=== PATIENT | female | born 1990 | race Caucasian/White ===

== ENCOUNTER 2018-10-07 06:25 | Inpatient (IN) | payer OTHER ==
--- NOTE | 2018-10-07 07:35 | History and Physical Report ---
History of Present Illness Date of examination: 10/07/18 Date of admission: 10/07/2018 Chief complaint: SROM History of present illness: Menstrual History Regularity: regular Menses every: 28 days Duration: 7 LMP: 01/01/2018 LMP reliability: definite LMP character: normal test type: urine test Date: 04/19/2018 BC at conception: none Planned ? no EDC Calculations LMP: 10/08/2018 EDC Confirmation: 10/08/2018 Past History : 2 Term Births: 0 Premature Births: 0 Living Children: 0 Para: 0 Mult. Births: 0 Prev : 0 Prev. attempt? 0 Aborta: 1 Past Medical History: Reviewed history from 11/22/2015 and no changes required: Negative Past Medical History Past Surgical History: Reviewed history from 11/22/2015 and no changes required: negative Past Medical History Anesthesia Complications: negative Anemia: negative Autoimmune Disorder: negative Bleeding Disorder: negative Blood Transfusions: negative Breast Disease: negative Diabetes: negative Heart Disease: negative Hypertension: negative Hepatitis/Liver Disease: negative Kidney Disease/UTI: negative Neurologic/Epilepsy/Migraines: negative Phlebitis/Varicosities: negative Psychiatric: negative Pulmonary Disease/Asthma: negative Thyroid Disease: negative Hospitalizations: negative Surgery (Non-artistic associate): negative Abnormal PAP: negative STEPHANIE Exposure: negative Infertility: negative Uterine Anomaly: negative Uterine Surgery (not C/S): negative Other Gynecologic Problems: negative Social Hx: Patient is single Smoking History: Patient has never smoked. Infection History Hx of STD: none HIV Risk Eval: no Hepatitis B Risk Eval: low risk Personal hx. of genital herpes: no Partner hx. of genital herpes: no Rash, Viral, or Febrile illness since last LMP? no Varicella/Chicken Pox Status: Previous Disease Genetic History Congenital Heart Defect: Mom: no Dad: no Mumtaz Disease: Mom: no Dad: no Thalassemia Mom: no Dad: no Neural Tube Defect Mom: no Dad: no Down's Syndrome Mom: yes Dad: no Comments: cousin with DS Miguelito-Sachs Mom: no Dad: no Sickle Cell Disease/Trait Mom: no Dad: no Hemophilia Mom: no Dad: no Muscular Dystrophy Mom: no Dad: no Cystic Fibrosis Mom: no Dad: no Steven Chorea Mom: no Dad: no Mental Retardation Mom: no Dad: no Fragile X Mom: no Dad: no Other Genetic/Chromosomal Disorder Mom: no Dad: no Child w/other defect Mom: no Dad: no Enviromental Exposures Xray Exposure: no Medication, drug, or alcohol use since LMP: no Chemical/Other Exposure: no Exposure to Cat Liter: yes Hx of Parvovirus (Fifth Disease): no Occupational Exposure to Children: none Comments: instucted not to do litter box Current Allergies (reviewed today): No known allergies Past History Past Medical History: other (see hpi) Past Surgical History: other (see hpi) 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) Family/Genetic History: other (see hpi) Social history: other (see hpi) - Obstetrical History : 2 Medications and Allergies Allergies Allergy/AdvReac Type Severity Reaction Status Date / Time No Known Allergies Allergy Verified 10/07/18 07:51 Home Medications Medication Instructions Recorded Confirmed Last Taken Type Vit-Fe Fumar-FA [ 1 tab PO QDAY 10/07/18 10/07/18 10/06/18 His tory Vitamin] Review of Systems All systems: negative - Vital Signs Vital signs: Vital Signs Temp Pulse Resp BP Pulse Ox 98.1 F 126 H 22 125/81 96 10/07/18 06:41 10/07/18 06:41 10/07/18 06:41 10/07/18 06:41 10/07/18 06:41 Temp Pulse Resp BP Pulse Ox 98.1 F 118 H 22 125/81 97 10/07/18 06:41 10/07/18 07:26 10/07/18 06:41 10/07/18 06:41 10/07/18 07:26 - Physical Exam Breasts: Positive: normal Cardiovascular: Regular rate, Normal S1, Normal S2 Lungs: Positive: Clear to auscultation Abdomen: Positive: normal appearance, soft, normal bowel sounds. Negative: distention, tenderness Vulva: both: normal Vagina: Positive: normal moisture. Negative: discharge Cervix: Negative: lesion, discharge Uterus: Positive: normal size, normal contour Adnexa: both: normal Anus/Rectum: Positive: normal perianal skin, heme negative. Negative: rectal mass, hemorrhoids Extremities: Deep Tendon Reflex Grade: Normal +2 - Obstetrical FHR: auscultation normal Uterine Contraction Monitor Mode: External (irregular, mild) Uterine Contraction Pattern: Irregular Uterine Tone Measurement Phase: Contraction Uterine Contraction Intensity: Mild (resting tone soft) Results Result Diagrams: 10/07/18 07:14 All other labs normal. Assessment and Plan 27 y.o. IUP at 39w 6d admitted for SROM, clear at 0400. Patient denies regular, painful contractions. SVE is 1.5/60/-1. GBS negative. Category 1 tracing. Plan to start pitocin per protocol. patient desires unmedicated labor. Plan reviewed with Dr. Cunningham and patient, both agree to proceed.
[2018-10-07 07:47] LABS: Hemoglobin 12.6 gm/dl (10.1-14.3); Mean Corpuscular HGB Conc 35 % (30-34); Mean Corpuscular Volume 90 fl (79-97); Platelet Count 245 K/mm3 (140-440); Red Blood Count 4.01 M/mm3 (3.65-5.03); Red Cell Distribution Width 14.2 % (13.2-15.2)
[2018-10-07] MEDS ORDERED: LACTATED RINGERS 1,000 ML ONE (07:47)
[2018-10-07] MEDS ORDERED: ZOFRAN IV PRN ×2 (08:30→23:02)
[2018-10-07] MEDS ORDERED: NARCAN 0.4 MG/1 ML IV PRN ×2 (08:30→23:02)
[2018-10-07] MEDS ORDERED: BRETHINE SUB-Q PRN (08:30)
[2018-10-07] MEDS ORDERED: XYLOCAINE 2% INFILTRATI NR (08:30)
[2018-10-07] MEDS ORDERED: BRETHINE IVP PRN (08:30)
[2018-10-07] MEDS ORDERED: MINERAL OIL PO PRN (08:30)
[2018-10-07] MEDS ORDERED: LACTATED RINGERS 1,000 ML IV SCH (09:00)
[2018-10-07] MEDS ORDERED: PITOCin/NS 30 UNIT/500ML 30 UNITS/500 ML BAG IV SCH ×2 (09:00)
[2018-10-07] MEDS ORDERED: PITOCin/NS 20 UNIT/1000ML DRIP 20 UNITS/1,000 ML BAG IV SCH (09:00)
[2018-10-07] MEDS: SUBLIMAZE IV PRN ×3 (14:45→18:50)
--- NOTE | 2018-10-07 18:43 | Event Note ---
Date: 10/07/18 Patient repeat cervical exam by RN still 8 cm. Discussed with the patient and family indications for operative delivery. Also discussed patient's epidural which is still does not have. We'll continue with analgesics for now. tracing is reactive will continue expected management
[2018-10-07] MEDS ORDERED: PEPCID IV ONE (22:47)
[2018-10-07] MEDS ORDERED: REGLAN IV ONE (22:47)
[2018-10-07] MEDS ORDERED: BICITRA PO ONE (22:47)
--- NOTE | 2018-10-07 22:53 | Event Note ---
Date: 10/07/18 Patient has been completely dilated since approximately 1999. Patient has had good effort with pushing but is not push past +1 station. We have repositioning patient also tried to rotate head without success of increasing descent. Patient was complaining of pain and fatigue and desires section. Patient informed the risks of the surgery include bleeding possibly bleeding heavy enough to require blood transfusion, infection possible damage to bowel bladder ureter. All questions answered. Patient agrees to proceed
[2018-10-07] MEDS ORDERED: ANCEF/STERILE WATER 2 GM/20 ML 2 GM/20 ML SYRINGE IV NR (23:00)
[2018-10-07] MEDS ORDERED: PHENERGAN PO PRN (23:02)
[2018-10-07] MEDS ORDERED: DILAUDID IV PRN (23:02)
[2018-10-07] MEDS ORDERED: PHENERGAN PR PRN (23:02)
--- NOTE | 2018-10-07 23:02 | Anesthesia Consultation ---
Anesthesia Consult and Med Hx Date of service: 10/07/18 - Airway Anesthetic Teeth Evaluation: Good ROM Head & Neck: Adequate Mental/Hyoid Distance: Adequate Mallampati Class: Class II Intubation Access Assessment: Probably Good - Pulmonary Exam CTA: Yes - Cardiac Exam Cardiac Exam: RRR - Pre-Operative Health Status ASA Pre-Surgery Classification: ASA2, Emergency Proposed Anesthetic Plan: Spinal - Pulmonary Hx Asthma: No - Cardiovascular System Hx Hypertension: No - Central Nervous System Hx Seizures: No Hx Psychiatric Problems: No - Endocrine Hx Renal Disease: No Hx Hypothyroidism: No Hx Hyperthyroidism: No - Hematic Hx Anemia: No Hx Sickle Cell Disease: No - Other Systems Hx Alcohol Use: No
[2018-10-07] MEDS ORDERED: NACL 0.9% IR ONE (23:12)
[2018-10-07] MEDS ORDERED: WATER FOR IRRIG STERILE IR ONE (23:12)
[2018-10-07] MEDS ORDERED: fentaNYL-BUPIV 2 MCG/ML-0.125% 200 MCG/100 ML BAG EPIDURAL SCH (23:45)
[2018-10-07] MEDS ORDERED: SODIUM CHLORIDE FLUSH SYRINGE 10 ML IV NR (23:45)
--- NOTE | 2018-10-08 00:35 | Operative Report ---
Operative Report Operative Report: Date of procedure: 10/07/2018 Pre-operative diagnosis: Intrauterine at 39 weeks with premature rupt ure of membranes, failure of descent Post-operative diagnosis: Same Procedure name(s): Primary low transverse section Surgeon: Alejandro Cunningham MD Field Case Manager: Anesthesia: Final EBL: 500 mL Complications: None Findings: Normal uterus tubes and ovaries bilaterally. Female weight 8 lbs. 1 oz. Apgars 8 at 1 minute and 9 at 5 minutes Specimen(s): None Procedure: The patient was brought to the operating room. A spinal was placed without any complications. She was then placed in left lateral tilt. Prepped and draped in the usual sterile manner. After testing for adequate anesthesia level, a Pfannenstiel incision was made. This incision was taken down to the fascia. The fascia was then nicked in the midline. This incision was extended out laterally with Pires scissors. The fascia was then sharply and bluntly from the underlying rectus muscles. The rectus muscles were bluntly and sharply . The peritoneum was then entered with the encoding machine operator's fingers. This incision was spread vertically with care not to damage the bladder below. The bladder flap was then formed sharply and bluntly with Metzenbaum scissors. The Nico self-retaining tractor was then placed without any difficulty. A transverse incision was made in lower uterine segment. This incision was extended laterally with the operators fingers. The amniotic sac was then entered bluntly with the encoding machine operator's fingers. The infant was delivered from the vertex position. Bulb suction on the mother's abdomen. Cord was double clamped and cut. The infant was then passed to the nursery personnel who were in attendance. The above scores were given by the nursery personnel. The placenta was then bluntly removed. The uterus was then externalized and wiped clean the remaining products. The uterine incision was closed in layers. The first incision was closed in a locking manner using 0 Vicryl. This was followed by imbricating stitch also with 0 Vicryl. This closure was hemostatic. The bladder flap was copiously irrigated and found to be hemostatic. The pelvis was copiously irrigated and found to be hemostatic. The uterus was then placed back to the patient's abdomen. The retractors were removed. The rectus muscles were inspected and found to be hemostatic. The fascia was then closed in a running manner using 0 Vicryl. This incision was hemostatic irrigation Bovie. The skin was reapproximated with 4-0 Vicryl subcuticularly. The patient tolerated procedure well. Her urine was clear. The was admitted to the [facility] baby nursery. The patient was accompanied to recovery room in good condition. Instrument count correct times 3.
[2018-10-08] MEDS ORDERED: TUCKS PAD TP PRN (00:46)
[2018-10-08] MEDS ORDERED: MYLICON PO PRN (00:46)
[2018-10-08] MEDS ORDERED: NARCAN 0.4 MG/1 ML IV PRN (00:46)
[2018-10-08] MEDS ORDERED: MILK OF MAGNESIA PO PRN (00:46)
[2018-10-08] MEDS ORDERED: ZOFRAN IV PRN (00:46)
[2018-10-08] MEDS ORDERED: LANSINOH TP PRN (00:46)
[2018-10-08] MEDS ORDERED: SODIUM CHLORIDE FLUSH SYRINGE 10 ML IV NR (01:00)
[2018-10-08] MEDS ORDERED: D5LR 1,000 ML IV SCH (01:00)
[2018-10-08] MEDS ORDERED: PITOCin/NS 20 UNIT/1000ML DRIP 20 UNITS/1,000 ML BAG IV SCH (01:00)
[2018-10-08] MEDS: TORADOL IV SCH ×4 (02:53→23:20)
--- NOTE | 2018-10-08 07:57 | Progress Note ---
Assessment and Plan patient resting, reports pain well controlled. Floyd to BSB with adequate output. VSSAF. H&H ordered for 1236 today. Encouraged hydration and use of ISS while awake. continue postop pathway. - Patient Problems (1) delivery delivered Current Visit: Yes Status: Acute Subjective - Subjective Date of service: 10/08/18 Principal diagnosis: <12hrs postop; s/p primary c/s Patient reports: pain well controlled, no nauseated [place]: doing well, bottle feeding Objective - Vital Signs Latest vital signs: Vital Signs Temp Pulse Resp BP BP Pulse Ox 10/08/18 04:48 99.1 F 83 20 118/57 10/08/18 03:23 18 10/08/18 02:53 18 10/08/18 02:31 98.0 F 107 H 22 134/66 10/08/18 01:35 98.3 F 78 20 110/52 98 10/08/18 01:20 74 17 108/56 98 10/08/18 01:05 69 20 110/48 96 10/08/18 00:55 79 20 103/54 96 10/08/18 00:45 73 20 93/48 95 10/08/18 00:40 82 19 94/41 95 10/08/18 00:35 85 20 88/34 95 10/08/18 00:30 99.1 F 97 H 17 84/33 95 10/07/18 22:21 130 H 131/77 10/07/18 21:52 113 H 110/55 10/07/18 20:21 118 H 133/94 10/07/18 19:50 106 H 137/68 10/07/18 19:20 117 H 131/81 10/07/18 18:50 100 H 135/75 10/07/18 18:21 117 H 129/67 10/07/18 17:50 82 118/66 10/07/18 17:21 97 H 130/85 10/07/18 17:07 99 H 127/70 10/07/18 15:51 103 H 120/58 10/07/18 15:20 92 H 129/84 10/07/18 14:50 85 133/89 10/07/18 13:59 97.2 F L 20 10/07/18 13:57 97 H 133/71 10/07/18 12:40 98 H 129/75 10/07/18 12:11 107 H 120/75 10/07/18 11:40 105 H 121/75 10/07/18 11:11 108 H 125/68 10/07/18 10:45 112 H 122/67 10/07/18 10:11 103 H 116/69 10/07/18 09:40 100 H 110/60 10/07/18 09:11 101 H 119/60 10/07/18 08:40 100 H 118/74 Intake and Output 10/07/18 10/07/18 10/08/18 15:59 23:59 07:59 Intake Total 30.900 120 Output Total 400 1800 Balance -369.100 -1680 Intake: IV 30.900 PITOCin/NS 30 UNIT/500ML 30.900 30 units In 500 ml @ 2 mls/hr IV TITR NYDIA Rx#: [id number] Oral 120 Output: Urine 400 1800 Indwelling Catheter 1300 Uretheral (Floyd) 500 Void 400 Other: Total, Intake Amount 120 Total, Output Amount 200 900 Estimated Blood Loss 500 - Exam Breasts: Present: normal Cardiovascular: Present: Regular rate Lungs: Present: Clear to auscultation, Normal air movement Abdomen: Present: normal appearance, soft Vulva: both: normal Uterus: Present: normal, firm, fundal height at umbilicus Extremities: Present: normal Incision: Present: normal, dry, dressed
[2018-10-08] MEDS: ANCEF/NS 1 GM/50 ML 1 GM/50 ML BAG IV SCH ×2 (09:51→17:52)
[2018-10-08] MEDS: FEOSOL PO SCH (09:53)
[2018-10-08] MEDS: PRENATAL VITAMIN PO SCH (09:54)
[2018-10-08 13:43] LABS: Hematocrit 33.4 % (30.3-42.9); Hemoglobin 11.5 gm/dl (10.1-14.3)
[2018-10-08] MEDS: NORCO 5/325 PO PRN (17:51)
[2018-10-08] MEDS: IBUPROFEN PO PRN (17:51)
[2018-10-08] MEDS ORDERED: M-M-R II VACCINE SUB-Q ONE (20:00)
[2018-10-09] MEDS: IBUPROFEN PO PRN ×3 (05:57→17:56)
[2018-10-09] MEDS: NORCO 5/325 PO PRN ×3 (05:58→22:04)
[2018-10-09] MEDS ORDERED: M-M-R II VACCINE SUB-Q ONE (06:00)
[2018-10-09] MEDS ORDERED: BOOSTRIX IM ONE (06:00)
[2018-10-09] MEDS: PRENATAL VITAMIN PO SCH (10:56)
[2018-10-09] MEDS: FEOSOL PO SCH (10:56)
--- NOTE | 2018-10-09 11:13 | Discharge Summary ---
Providers - Providers Date of Admission: 10/07/18 07:46 Date of discharge: 10/10/18 (patient desires discharge tomorrow morning) Attending physician: HANK CROWE 10/08/18 00:46 Consult to Applications Sales Representative [CONS] Routine Reason For Exam: Primary care physician: HANK CROWE Hospitalization Reason for admission: SROM Condition: Good Pertinent studies: post delivery H&H 11.5/33.4 Procedures: primary section for failure to progress Hospital course: uncomplicated delivery and course Disposition: - TO HOME OR SELFCARE Core Measure Documentation - Palliative Care Palliative Care/ Comfort Measures: Not Applicable - Core Measures Any of the following diagnoses?: none Exam - Constitutional Vitals: Temp Pulse Resp BP Pulse Ox 98.7 F 86 18 113/75 98 10/09/18 08:15 10/09/18 08:15 10/09/18 08:15 10/09/18 08:15 10/08/18 15:29 General appearance: Present: no acute distress, well-nourished - EENT Eyes: Present: PERRL ENT: hearing intact, clear oral mucosa - Neck Neck: Present: supple, normal ROM - Respiratory Respiratory effort: normal Respiratory: bilateral: CTA - Cardiovascular Heart Sounds: Present: S1 & S2. Absent: rub, click - Extremities Extremities: pulses symmetrical, No edema Peripheral Pulses: within normal limits - Abdominal General gastrointestinal: Present: soft, non-tender, non-distended, normal bowel sounds Female genitourinary: Present: normal - Integumentary Integumentary: Present: clear, warm, dry - Musculoskeletal Musculoskeletal: gait normal, strength equal bilaterally - Psychiatric Psychiatric: appropriate mood/affect, intact judgment & insight - Neurologic Neurologic: CNII-XII intact, moves all extremities - Additional findings Additional findings: incision well approximated, no bleeding or drainage noted, healing well. Fundus firm, ML, U/2. bleeding is scant. going well, supplementing with formula as needed. Plan Activity: no restrictions Diet: regular Wound: open to air, keep clean and dry Follow up with: HANK CROWE MD [Primary Care Provider] - 7 Days (Congratulations! Please call [phone] to schedule incision check appointment in 1 week. Pleas e call with any questions or concerns. ) Prescriptions: Ferrous Sulfate [Feosol 325 MG tab] 325 mg PO BID #60 tablet Ibuprofen [Motrin 800 MG tab] 800 mg PO Q6H PRN #30 tablet PRN Reason: Pain oxyCODONE /ACETAMINOPHEN [Percocet 5/325 mg] 1 - 2 tab PO Q4H PRN #30 tablet PRN Reason: Pain, Moderate
[2018-10-10] MEDS: IBUPROFEN PO PRN (06:33)
[2018-10-10] MEDS: PRENATAL VITAMIN PO SCH (10:07)
[2018-10-10] MEDS: FEOSOL PO SCH (10:07)
[2018-10-10 17:04] VITALS: BP 119/80
== END 2018-10-10 19:38 | disposition home or self-care (01) | DRG 766 ==
LOC: TRG 06:25 → LD 07:46 → APU 23:00 → OB 10-08 02:24
PROVIDERS: ADMIT Obstetrics & Gynecology; ATTEND Obstetrics & Gynecology
PROC: 10D00Z1 Extraction of Products of Conception, Low, Open Approach (ICD-10-PCS; principal; 2018-10-07)
PROC: 3E0234Z Introduction of Serum, Toxoid and Vaccine into Muscle, Percutaneous Approach (ICD-10-PCS; 2018-10-09)
DX: O32.4XX0 Maternal care for high head at term, not applicable or unspecified (principal); Z3A.39 39 weeks gestation of pregnancy; Z37.0 Single live birth; Z23 Encounter for immunization
CPT/HCPCS: 36415; 85014; 85018; 85027; 86592; 86850; 86900; 86901; 90471; 90715; G0378; J0690; J1885; J2405; J2590; J2765; J3010; J7120; J7121